=== PATIENT | male | born 1960 | race Caucasian/White ===

== ENCOUNTER 2018-03-04 14:57 | Outpatient (CLI) | payer OTHER ==
[~2018-03-04] VITALS: Ht 175.3 cm; Wt 81.6 kg
[2018-03-04] MEDS ORDERED: ALPR0.254 PO (15:37)
[2018-03-04] MEDS ORDERED: PARO-49 PO (15:37)
== END 2018-03-04 15:41 | disposition home or self-care (01) ==
LOC: PREOP 14:57
PROVIDERS: ATTEND Urology
DX: Z01.818 Encounter for other preprocedural examination (principal)

== ENCOUNTER 2018-03-09 06:49 | Day surgery (SDC) | payer OTHER ==
[~2018-03-09] VITALS: Ht 175.3 cm; Wt 82.6 kg
[~2018-03-09 06:49] MED LIST: ALPR0.254 PO; PARO-49 PO
[2018-03-09 07:15] VITALS: BP 118/85
[2018-03-09] MEDS ORDERED: cefTRIAXone FOR IV USE 1,000 MG in NS (IVPB) 50 ML IV ONE (07:15)
[2018-03-09] MEDS ORDERED: LACTATED RINGERS 1,000 ML IV PRN (07:15)
[2018-03-09] MEDS ORDERED: LIDOCAINE PF 2% 5 ML (XYLOCAINE) VIAL ONE (08:09)
[2018-03-09] MEDS ORDERED: ONDANSETRON 4 MG/2 ML (SDV) Z0FRAN ONE (08:09)
[2018-03-09] MEDS ORDERED: proPOfol 200 MG/20 ML (DIPRIVAN) VIAL IV ONE (08:09)
[2018-03-09] MEDS ORDERED: SEVOFLURANE (ULTANE) 15 ML INHAL SOLN ONE (08:09)
[2018-03-09] MEDS ORDERED: fentaNYL INJECTION 100 MCG/2 ML AMP ONE (08:09)
[2018-03-09] MEDS ORDERED: DEXAMETHASONE 10 MG/ML (DECADRON) 1 ML VIAL ONE (08:09)
[2018-03-09] MEDS ORDERED: MIDAZOLAM 2 MG/2 ML (VERSED) VIAL ONE (08:10)
[2018-03-09] MEDS ORDERED: ASPI-586 PO (08:20)
--- NOTE | 2018-03-09 08:24 | Progress Note-Pre Operative ---
Pre-Operative Progress Note H&P Reviewed The H&P was reviewed, patient examined and no changes noted. Date Seen by Provider: Mar 09, 2018 Time Seen by Provider: 08:24 Date H&P Reviewed: Mar 09, 2018 Time H&P Reviewed: 08:24 Pre-Operative Diagnosis: BILATERAL RENAL STONES JAMAL FIELDS MD Mar 09, 2018 8:24 am
--- NOTE | 2018-03-09 09:00 | Progress Note-Post Operative ---
Post-Operative Progess Note Surgeon (s)/Sr. Manager Corporate Communications (s) Surgeon JAMAL FIELDS MD Sr. Manager Corporate Communications: NONE Pre-Operative Diagnosis BILATERAL RENAL STONES Post-Operative Diagnosis SAME Procedure & Operative Findings Date of Procedure 03/09/18 Procedure Performed/Findings RT ESWL Anesthesia Type GENERAL Estimated Blood Loss Estimated blood loss (mL): NONE Specimens/Packing Specimens Removed NONE Packing: NONE JAMAL FIELDS MD Mar 09, 2018 9:00 am
--- NOTE | 2018-03-09 09:03 | Discharge Inst-Urology ---
Discharge Inst-Urology Discharge Medications New, Converted, or Re-newed RX: RX on Chart Patient Instructions/Follow Up Plan Please make appointment to been seen in office Thursday 03/22, KUB prior to it. Stay off ASA KUB on way home Post ESWL instructions Increase oral fluids for 48 hours and then as needed. Diet and Activity as tolerated. If questions or concerns contact your physician Or seek help at emergency department. JAMAL FIELDS MD Mar 09, 2018 9:03 am
[2018-03-09] MEDS ORDERED: KETOROLAC 30 MG/ML VIAL ONE (09:11)
[2018-03-09] MEDS ORDERED: FUROSEMIDE 40 MG/4 ML INJ (LASIX) ONE (09:11)
--- NOTE | 2018-03-09 09:11 | Diagnostic Imaging Report ---
INDICATION: Preop evaluation for bilateral renal stones.. TECHNIQUE: Single supine view of the abdomen 7:38 AM CORRELATION STUDY: None FINDINGS: There are multiple calcific densities superimposed over both renal silhouettes particularly over the mid and inferior poles. The largest solitary stone project over the inferior pole left kidney measuring up to 12 mm in size. No definitive evidence for abnormal calcification along the expected course of either ureter. Moderate severity fecal retention is noted. No evidence for large fecal impaction. IMPRESSION: 1. Findings consistent with bilateral nephrolithiasis. Largest stone is superimposed over the left kidney. Dictated by: Dictated on workstation # [id number]
[2018-03-09] MEDS ORDERED: HYDROmorphone 2 MG/ML VIAL (DILAUDID) IV ONE (09:30)
[2018-03-09] MEDS ORDERED: ONDANSETRON 4 MG/2 ML (SDV) Z0FRAN IVP PRN (09:30)
[2018-03-09 10:05] VITALS: BP 127/78
[2018-03-09] MEDS ORDERED: TAMS0.4C98 PO (10:25)
[2018-03-09] MEDS ORDERED: HYDR-3870 PO (10:25)
[2018-03-09] MEDS ORDERED: NITR-65 PO (10:25)
[2018-03-09 10:35] VITALS: BP 123/75
[2018-03-09 11:05] VITALS: BP 120/85
[2018-03-09 11:28] VITALS: BP 120/85
--- NOTE | 2018-03-09 13:07 | Diagnostic Imaging Report ---
Indication: Nephrolithiasis KUB 1135 There is a 10 mm stone projecting over the inferior pole of the left kidney. Bowel gas pattern is normal. There are no masses seen. Impression: Left nephrolithiasis. Dictated by: Dictated on workstation # [id number]
--- NOTE | 2018-03-09 13:48 | OPERATIVE REPORT ---
DATE OF SERVICE: 03/09/2018 PREOPERATIVE DIAGNOSIS: Bilateral renal stones. POSTOPERATIVE DIAGNOSIS: Bilateral renal stones. OPERATION PERFORMED: Right ESWL. SURGEON: Felice Fields MD. ANESTHESIA: General. COMPLICATIONS: None. DESCRIPTION OF PROCEDURE: Under satisfactory general anesthesia, the patient in supine position on the ESWL table, the right renal stone was localized. Shocks were delivered up to a kV of 4. Total of 2500 shocks completely fragmented the stone that was not visible anymore. The patient received 40 mg of Lasix and 30 mg of Toradol IV at the end of the procedure. The patient tolerated the procedure and anesthesia well and was sent to recovery room in stable condition. Instructions were given to the . Job ID: [id number] DocumentID: [id number] Dictated Date: 03/09/2018 09:18:52 Research Subject Date: 03/09/2018 13:48:12 Dictated By: FELICE FIELDS MD
--- NOTE | 2018-03-09 14:15 | Anesthesia-General Post-Op ---
General Patient Condition Mental Status/LOC: Same as Preop Cardiovascular: Satisfactory Nausea/Vomiting: Absent Respiratory: Satisfactory Pain: Controlled Complications: Absent Post Op Complications Complications None Follow Up Care/Instructions Patient Instructions None needed. Anesthesia/Patient Condition Patient Condition Patient is doing well, no complaints, stable vital signs, no apparent adverse anesthesia problems. No complications reported per nursing. D/C home per [facility] Criteria: Yes HARRY GARZA CRNA Mar 09, 2018 14:15
== END 2018-03-09 11:28 | disposition home or self-care (01) ==
LOC: SDC 06:49
PROVIDERS: ATTEND Urology
DX: N20.0 Calculus of kidney (principal); Z87.891 Personal history of nicotine dependence; Z98.1 Arthrodesis status
CPT/HCPCS: 74018; 87081

== ENCOUNTER → 2018-03-23 | Outpatient (CLI) | payer OTHER ==
[~2018-03-23] MED LIST changes: +ASPI-586 PO; +HYDR-3870 PO; +NITR-65 PO; +TAMS0.4C98 PO
--- NOTE | 2018-03-23 16:54 | Diagnostic Imaging Report ---
Indication: Abdominal pain KUB There is a 10 mm stone projecting over the inferior pole of the left kidney too small adjacent calculi. Also 2 small calcifications project over the right kidney measuring 3 mm in diameter. Bowel gas pattern is normal. There are no pathologic masses or calcifications. Impression: Left nephrolithiasis and possible right nephrolithiasis. Dictated by: Dictated on workstation # [id number]
== END ==
LOC: RAD 14:50
PROVIDERS: ATTEND Urology
DX: N20.0 Calculus of kidney (principal)
CPT/HCPCS: 74018

== ENCOUNTER 2018-04-01 05:30 | Outpatient (CLI) | payer OTHER ==
[~2018-04-01] VITALS: Ht 175.3 cm; Wt 82.6 kg
== END 2018-04-01 14:38 | disposition home or self-care (01) ==
LOC: PREOP 05:30
PROVIDERS: ATTEND Urology
DX: Z01.818 Encounter for other preprocedural examination (principal)

== ENCOUNTER 2018-04-07 06:40 | Day surgery (SDC) | payer OTHER ==
[~2018-04-07] VITALS: Ht 175.3 cm; Wt 80.7 kg
[2018-04-07 06:45] VITALS: BP 132/91
[2018-04-07] MEDS ORDERED: LACTATED RINGERS 1,000 ML IV PRN (06:46)
--- NOTE | 2018-04-07 06:59 | Progress Note-Pre Operative ---
Pre-Operative Progress Note H&P Reviewed The H&P was reviewed, patient examined and no changes noted. Date Seen by Provider: Apr 07, 2018 Time Seen by Provider: 06:59 Date H&P Reviewed: Apr 07, 2018 Time H&P Reviewed: 06:59 Pre-Operative Diagnosis: LT RENAL STONE JAMAL FIELDS MD Apr 07, 2018 06:59
[2018-04-07] MEDS ORDERED: cefTRIAXone FOR IV USE 1,000 MG in NS (IVPB) 50 ML IV ONE (07:00)
[2018-04-07] MEDS ORDERED: ASPI-586 PO (07:09)
[2018-04-07] MEDS ORDERED: CATHETER FLUSH 10 ML SYR IV PRN (07:15)
--- NOTE | 2018-04-07 07:34 | Discharge Inst-Urology ---
Discharge Inst-Urology Discharge Medications New, Converted, or Re-newed RX: RX on Chart Patient Instructions/Follow Up Plan Please make appointment to been seen in office in 2 weeks. KUB prior to it KUB on way home Post ESWL instructions Stay off ASA Increase oral fluids for 48 hours and then as needed. Diet and Activity as tolerated. If questions or concerns contact your physician Or seek help at emergency department. JAMAL FIELDS MD Apr 07, 2018 07:34
--- NOTE | 2018-04-07 07:35 | Progress Note-Post Operative ---
Post-Operative Progess Note Surgeon (s)/Fiberline Supervisor (s) Surgeon JAMAL FIELDS MD Fiberline Supervisor: none Pre-Operative Diagnosis LT RENAL STONE Post-Operative Diagnosis SAME Procedure & Operative Findings Date of Procedure 04/07/18 Procedure Performed/Findings LT ESWL Anesthesia Type GENERAL Estimated Blood Loss Estimated blood loss (mL): NONE Specimens/Packing Specimens Removed NONE Packing: NONE JAMAL FIELDS MD Apr 07, 2018 07:35
[2018-04-07] MEDS ORDERED: MIDAZOLAM 2 MG/2 ML (VERSED) VIAL ONE (08:00)
[2018-04-07] MEDS ORDERED: ONDANSETRON 4 MG/2 ML (SDV) Z0FRAN ONE (08:15)
[2018-04-07] MEDS ORDERED: DEXAMETHASONE 10 MG/ML (DECADRON) 1 ML VIAL ONE (08:15)
[2018-04-07] MEDS ORDERED: LIDOCAINE PF 2% 5 ML (XYLOCAINE) VIAL ONE (08:15)
[2018-04-07] MEDS ORDERED: FUROSEMIDE 40 MG/4 ML INJ (LASIX) ONE (08:15)
[2018-04-07] MEDS ORDERED: SEVOFLURANE (ULTANE) 15 ML INHAL SOLN ONE (08:15)
[2018-04-07] MEDS ORDERED: proPOfol 200 MG/20 ML (DIPRIVAN) VIAL IV ONE (08:15)
[2018-04-07] MEDS ORDERED: KETOROLAC 30 MG/ML VIAL ONE (08:15)
[2018-04-07] MEDS ORDERED: morphine INJ 10 MG/ML 1ML (SYR OR VIAL) ONE (08:23)
--- NOTE | 2018-04-07 08:40 | Diagnostic Imaging Report ---
INDICATION: Left renal stone. TIME OF EXAMINATION: 07:33 a.m. COMPARISON: Correlation is made with prior study from 03/23/2018. FINDINGS: Calcific densities overlie lower pole left kidney appear stable. Largest calcification is approximately 10-11 mm in size. There are tiny calcific densities overlie the right renal shadow and are unchanged. No calculi along the course of the ureters are seen. The bowel gas pattern is unremarkable. IMPRESSION: Stable bilateral renal calculi when compared with exam from 03/23/2018. Dictated by: Dictated on workstation # [id number]
[2018-04-07] MEDS ORDERED: ONDANSETRON 4 MG/2 ML (SDV) Z0FRAN IVP PRN (09:00)
[2018-04-07] MEDS ORDERED: morphine INJ 10 MG/ML 1ML (SYR OR VIAL) IVP ONE (09:00)
[2018-04-07 09:35] VITALS: BP 129/73
[2018-04-07] MEDS ORDERED: HYDR-3870 PO (09:45)
[2018-04-07] MEDS ORDERED: TAMS0.4C98 PO (09:45)
[2018-04-07] MEDS ORDERED: NITR-68 PO (09:45)
--- NOTE | 2018-04-07 09:45 | OPERATIVE REPORT ---
DATE OF SERVICE: 04/07/2018 PREOPERATIVE DIAGNOSIS: Left renal stone. POSTOPERATIVE DIAGNOSIS: Left renal stone. OPERATION PERFORMED: Left ESWL. SURGEON: Felice Fields MD. ANESTHESIA: General. COMPLICATIONS: None. DESCRIPTION OF PROCEDURE: Under satisfactory general anesthesia in the supine position on the ESWL table, the left renal stone was localized. Shocks were delivered at a kV of 5. A total of 3000 shocks fragmented the stone. The patient received 30 mg of Toradol and 40 mg of Lasix IV. He tolerated the procedure and anesthesia well and was sent to the recovery room in stable condition. Job ID: [id number] DocumentID: [id number] Dictated Date: 04/07/2018 09:34:26 Conduit Helper Date: 04/07/2018 09:45:13 Dictated By: FELICE FIELDS MD
[2018-04-07 10:05] VITALS: BP 133/81
[2018-04-07 10:35] VITALS: BP 129/84
[2018-04-07 10:45] VITALS: BP 129/84
--- NOTE | 2018-04-07 11:04 | Diagnostic Imaging Report ---
INDICATION: Status post lithotripsy on the left for left renal calculi. TIME OF EXAM: 10:50 a.m. Correlation is made with prior study earlier the same day. Bilateral renal calculi are again noted. There is questionable fragmentation of the dominant calculus in left kidney since earlier today. No definite calculi along the expected course of ureters is seen. Bowel gas pattern is unremarkable. IMPRESSION: Bilateral nephrolithiasis. There is some questionable fragmentation of the larger calculus in the left kidney with small calculi noted in the mid left kidney on this current exam. No definite ureteral calculi are identified. Dictated by: Dictated on workstation # [id number]
--- NOTE | 2018-04-07 13:39 | Anesthesia-General Post-Op ---
General Patient Condition Mental Status/LOC: Same as Preop Cardiovascular: Satisfactory Nausea/Vomiting: Absent Respiratory: Satisfactory Pain: Controlled Complications: Absent Post Op Complications Complications None Follow Up Care/Instructions Patient Instructions None needed. Anesthesia/Patient Condition Patient Condition Patient is doing well, no complaints, stable vital signs, no apparent adverse anesthesia problems. JENNIFER RUIZ DO Apr 07, 2018 13:39
== END 2018-04-07 10:45 | disposition home or self-care (01) ==
LOC: SDC 06:40
PROVIDERS: ATTEND Urology
DX: N20.0 Calculus of kidney (principal); Z87.891 Personal history of nicotine dependence
CPT/HCPCS: 74018; 87081

== ENCOUNTER → 2018-04-19 | Outpatient (CLI) | payer OTHER ==
[~2018-04-19] MED LIST changes: +NITR-68 PO
--- NOTE | 2018-04-19 15:55 | Diagnostic Imaging Report ---
INDICATION: Status post ESWL. Follow up. COMPARISON: 04/07/2018. FINDINGS: Two supine radiographic views of the abdomen were obtained. There has been significant overall improved appearance to left-sided nephrolithiasis. There is some amorphous opacity projecting over the inferior pole of the left kidney, which may be on the basis of retained stones, although artifact related to debris within the colon overlying the kidney cannot be entirely excluded. 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 Multiple right-sided renal calculi are also again noted. No unexpected radiopaque foreign bodies are seen. Small bowel loops are nondistended. There is no large collection of free intraperitoneal air. IMPRESSION: 1. Debris within the distal left ureter consistent with interval ESWL. Additionally, there appear to be some retained calculi within the inferior pole of the left kidney. 2. Stable appearing right-sided nephrolithiasis. Dictated by: Dictated on workstation # [id number]
== END ==
LOC: RAD 13:50
PROVIDERS: ATTEND Urology
DX: N20.0 Calculus of kidney (principal); N28.89 Other specified disorders of kidney and ureter
CPT/HCPCS: 74018

== ENCOUNTER → 2018-08-26 | Outpatient (CLI) | payer OTHER ==
--- NOTE | 2018-08-26 09:09 | Diagnostic Imaging Report ---
INDICATION: Nephrolithiasis KUB at 9 AM Bowel gas pattern is normal. There is some faint opacification seen in the inferior pole of the left kidney which may be residual calculus. There are some phleboliths in the pelvis on the left. There is a linear opacity projecting over the inferior pole of the right kidney. IMPRESSION: Probable residual calculus inferior pole left kidney. There is a faintly opaque linear opacity in the inferior pole of the right kidney that could also be a small calculus. Dictated by: Dictated on workstation # [id number]
== END ==
LOC: RAD FS 08:54
PROVIDERS: ATTEND Urology
DX: N20.0 Calculus of kidney (principal)
CPT/HCPCS: 74018